=== PATIENT | female | born 1965 | race Caucasian/White ===

== ENCOUNTER 2019-10-29 11:34 | Emergency (ER) | payer OTHER ==
[~2019-10-29] VITALS: Ht 157.5 cm; Wt 53.5 kg
[2019-10-29 11:47] VITALS: BP 116/64
[2019-10-29] MEDS ORDERED: NACL 0.9% 1,000 ML IV ONE (14:20)
[2019-10-29] MEDS ORDERED: KETOROLAC 15 MG/ML VIAL IVP ONE (14:20)
[2019-10-29 14:48] LABS: BASOPHILS # (AUTO) 0.1 K/uL (0.00-0.22); BASOPHILS % (AUTO) 0.5 % (0.0-2.0); EOSINOPHILS % (AUTO) 0.2 % (0.0-4.0); HEMATOCRIT 41.7 % (36-48); HEMOGLOBIN 13.6 g/dL (12.0-16.0); LYMPHOCYTES # (AUTO) 0.9 K/uL (2.5-16.5); LYMPHOCYTES % (AUTO) 8.8 % (20.5-51.1); MEAN CORPUSCULAR HEMOGLOBIN 29 pg (27-31); MEAN CORPUSCULAR HGB CONC 33 g/dL (33-37); MEAN CORPUSCULAR VOLUME 89.9 fL (80-94); MONOCYTES # (AUTO) 0.5 K/uL (0.8-1.0); MONOCYTES % (AUTO) 4.9 % (1.7-9.3); NEUTROPHILS # (AUTO) 8.8 K/uL (1.8-7.7); NEUTROPHILS % (AUTO) 85.6 % (42.2-75.2); PLATELET COUNT (AUTO) 209 K/uL (140-450); RED BLOOD CELL COUNT(AUTO) 4.64 MIL/uL (4.20-5.40); RED CELL DISTRIBUTION WIDTH 12.3 % (11.6-13.7); WHITE BLOOD COUNT (AUTO) 10.3 K/uL (4.8-10.8)
[2019-10-29 15:09] LABS: APPEARANCE,URINE CLOUDY (CLEAR); BILIRUBIN,URINE 1+ (NEGATIVE); BLOOD, URINE 3+ (NEGATIVE); COLOR,URINE RED (YELLOW); LEUKOCYTE ESTERASE ,URINE 3+ (NEGATIVE); NITRITE, URINE POSITIVE (NEGATIVE); UGLUCOSE NEGATIVE (NEGATIVE)
[2019-10-29 15:11] LABS: ALBUMIN 3.6 g/dL (3.4-5.0); ANION GAP 9.2 (8-16); CREATININE 0.7 mg/dL (0.6-1.3); POTASSIUM 4.2 mmol/L (3.5-5.1); TOTAL BILIRUBIN 0.3 mg/dL (0.0-1.0)
[2019-10-29] MEDS ORDERED: cefTRIAXone 1,000 MG VIAL ONE (15:30)
[2019-10-29] MEDS ORDERED: cefTRIAXone 1,000 MG in LIDOCAINE MPF 1% 2.1 ML IM ONE (15:35)
[2019-10-29] MEDS ORDERED: LIDOCAINE MPF 1% 5 ML ONE (15:35)
[2019-10-29 15:42] LABS: RBC,URINE TOO NUMEROUS TO COUN /HPF (0-5); WBC,URINE TOO MANY TO COUNT /HPF (0-5)
[2019-10-29 15:48] VITALS: BP 110/58
== END 2019-10-29 15:48 | disposition home or self-care (01) ==
LOC: MED 11:34
DX: N39.0 Urinary tract infection, site not specified (principal)
CPT/HCPCS: 36415; 76770; 80053; 81001; 83690; 85025; 87086; 96372; 96374; 99285; J0696; J1885; J2001; J7030; Q0092; 87186

== ENCOUNTER 2021-11-14 14:13 | Emergency (ER) | payer OTHER ==
[~2021-11-14] VITALS: Ht 157.5 cm; Wt 59.9 kg
[2021-11-14 14:27] VITALS: BP 163/86
--- NOTE | 2021-11-14 15:00 | NUR ---
PT AMBULATED TO BED 9 WITH EVEN AND STEADY GAIT.
--- NOTE | 2021-11-14 15:11 | NUR ---
56 Y/O F C/O HEADACHE SINCE SATURDAY STATING IT RADIATES TO NECK. STATES PAIN 6/10 WITH PULSING SENSATION. REPORTS NUMBNESS OF FINGERS, DIZZINESS, NAUSEA, AND BILAT LEG PRESSURE. STATES SINCE SATURDAY MORNING, DIZZINESS INCREASED WHILE LAYING DOWN AND GETTING UP. PT A&OX4 WITH EVEN AND STEADY GAIT. PT HAS +5 STRENGTH IN UPPER EXTREMITIES BILATERALLY. SKIN IS WARM DRY AND INTACT. PT REPORTS BURNING WHEN URINATING. DENIES FREQUENCY, HEMATURIA, AND RETENTION. LUNG SOUNDS ARE CLEAR BILAT. REPORTS TAKING OTC MEDICATION LAST NIGHT WITH SOME RELIEF. PMH: HYPOTHYROIDISM, PRE-DM NKA
--- NOTE | 2021-11-14 15:38 | NUR ---
LAB AT PT BEDSIDE
[2021-11-14] MEDS ORDERED: MECLIZINE 25 MG TAB PO ONE (15:40)
[2021-11-14] MEDS ORDERED: ONDANSETRON 4 MG ODT PO ONE (15:40)
--- NOTE | 2021-11-14 15:56 | NUR ---
MD MADRIGAL AT PT BEDSIDE FOR FURTHER EVALUATION
[2021-11-14 16:04] LABS: BASOPHILS # (AUTO) 0.1 K/uL (0.00-0.22); BASOPHILS % (AUTO) 0.9 % (0.0-2.0); EOSINOPHILS % (AUTO) 0.2 % (0.0-4.0); HEMATOCRIT 41.1 % (36-48); HEMOGLOBIN 13.7 g/dL (12.0-16.0); LYMPHOCYTES % (AUTO) 16.4 % (20.5-51.1); MEAN CORPUSCULAR HEMOGLOBIN 29 pg (27-31); MEAN CORPUSCULAR HGB CONC 33 g/dL (33-37); MEAN CORPUSCULAR VOLUME 87.1 fL (80-94); MONOCYTES # (AUTO) 0.4 K/uL (0.8-1.0); MONOCYTES % (AUTO) 6.8 % (1.7-9.3); NEUTROPHILS # (AUTO) 4.5 K/uL (1.8-7.7); NEUTROPHILS % (AUTO) 75.7 % (42.2-75.2); PLATELET COUNT (AUTO) 207 K/uL (140-450); RED BLOOD CELL COUNT(AUTO) 4.72 MIL/uL (4.20-5.40); RED CELL DISTRIBUTION WIDTH 13.2 % (11.6-13.7); WHITE BLOOD COUNT (AUTO) 5.9 K/uL (4.8-10.8)
[2021-11-14 16:19] LABS: PROTHROMBIN TIME 10.1 secs (10.8-13.4)
[2021-11-14 16:22] LABS: ALBUMIN 3.8 g/dL (3.4-5.0); ANION GAP 11.3 (8-16); ASPARTATE AMINOTRANSFERASE 20 U/L (15-37); CARBON DIOXIDE 29.8 mmol/L (21-32); CHLORIDE 105 mmol/L (98-107); CREATININE 0.7 mg/dL (0.6-1.3); GFR ARICAN-AMERICAN 111 mL/min (>90); GLUCOSE 107 mg/dL (74-106); POTASSIUM 4.1 mmol/L (3.5-5.1); SODIUM SERUM 142 mmol/L (136-145); TOTAL BILIRUBIN 0.3 mg/dL (0.0-1.0); UREA NITROGEN, BLOOD 10 mg/dL (7-18)
--- NOTE | 2021-11-14 16:37 | NUR ---
UA WALKED TO LAB AND RECIEVED BY [employer].
[2021-11-14 17:08] LABS: APPEARANCE,URINE CLEAR (CLEAR); BILIRUBIN,URINE NEGATIVE (NEGATIVE); BLOOD, URINE NEGATIVE (NEGATIVE); COLOR,URINE YELLOW (YELLOW); LEUKOCYTE ESTERASE ,URINE NEGATIVE (NEGATIVE); NITRITE, URINE NEGATIVE (NEGATIVE); UGLUCOSE NEGATIVE (NEGATIVE)
--- NOTE | 2021-11-14 17:12 | NUR ---
PT TAKEN TO CT
--- NOTE | 2021-11-14 17:25 | NUR ---
PT RETURNED FROM CT VIA WHEELCHAIR. PT DESCRIBES DRY THROAT AND SHAKING. MADE AWARE.
--- NOTE | 2021-11-14 17:28 | NUR ---
MD MADRIGAL AT PT BEDSIDE FOR FURTHER EVALUATION.
--- NOTE | 2021-11-14 18:44 | NUR ---
FRIDA WIN AT PT BEDSIDE FOR RE-EVALUATION. PT IS CALM AT THIS TIME.
[2021-11-14] MEDS ORDERED: MECL-303 PO (18:49)
[2021-11-14] MEDS ORDERED: ONDA-188 PO (18:49)
--- NOTE | 2021-11-14 19:06 | NUR ---
Patient discharged with v/s stable. Written and verbal after care instructions given and explained. Patient alert, oriented and verbalized understanding of instructions. Ambulatory with steady gait. All questions addressed prior to discharge. ID band removed. Patient advised to follow up with PMD. Rx of ANTIVERT AND ZOFRAN ODT given. Patient educated on indication of medication including possible reaction and side effects. Opportunity to ask questions provided and answered.
[2021-11-14 19:09] VITALS: BP 113/53
== END 2021-11-14 19:06 | disposition home or self-care (01) ==
LOC: MED 14:13
DX: R51.9 Headache, unspecified (principal); R11.2 Nausea with vomiting, unspecified; R42 Dizziness and giddiness; E11.9 Type 2 diabetes mellitus without complications; Z86.39 Personal history of other endocrine, nutritional and metabolic disease; Z98.890 Other specified postprocedural states; Z79.899 Other long term (current) drug therapy
CPT/HCPCS: 36415; 70450; 70496; 70498; 71045; 80053; 81003; 84484; 85025; 85610; 85730; 93005; 99285; J8597; Q0092; Q0162; Q9967